=== PATIENT | female | born 1960 | race Caucasian/White ===

== ENCOUNTER → 2018-08-10 | Outpatient (CLI) | payer MEDICAID ==
--- NOTE | 2018-08-10 13:20 | RADIOLOGY REPORT (SQ) ---
EXAM DESCRIPTION: FOOT LEFT COMPLETE COMPLETED DATE/TIME: 08/10/2018 12:35 pm REASON FOR STUDY: LEFT FOOT PAIN twisted left foot on stairs 2 weeks ago, continued pain COMPARISON: None. NUMBER OF VIEWS: Three views. TECHNIQUE: AP, lateral and oblique radiographic images acquired of the left foot. LIMITATIONS: None. FINDINGS: MINERALIZATION: Normal. BONES: Patient is post surgery at the 1st MTP joint, with a left 1st metatarsal head prosthesis. Bon y remodeling of the base of the great toe proximal phalanx. No lucency around the hardware worrisome for loosening. Tiny subacute avulsion fracture along the dorsal aspect of the talus best shown on lateral view JOINTS: No effusions. SOFT TISSUES: Anterior left ankle soft tissue swelling, in the area of the distal tibialis anterior t endon. No foreign body. OTHER: No other significant finding. IMPRESSION: Tiny subacute avulsion fracture along the dorsal aspect of the talus, best shown on late ral view. There is adjacent anterior left ankle soft tissue swelling. Left 1st metatarsal head prosthesis with bony remodeling at the base great toe proximal phalanx. No lucency around the hardware worrisome for loosening TECHNICAL DOCUMENTATION: JOB ID: [id number] [employer]- All Rights Reserved Reading location - IP/workstation name: [email or web address]
== END ==
LOC: OD 12:20
PROVIDERS: ATTEND Nurse Practitioner Family
DX: M79.672 Pain in left foot (principal); S92.152D Displaced avulsion fracture (chip fracture) of left talus, subsequent encounter for fracture with routine healing; X58.XXXD Exposure to other specified factors, subsequent encounter

== ENCOUNTER 2018-08-23 14:17 | Emergency (ER) | payer MEDICAID ==
[2018-08-23] MEDS ORDERED: LIDOCAINE 1% INJ-PF (10 MG/ML) 30 ML SDV INJ ONE (15:18)
--- NOTE | 2018-08-23 17:42 | ER Document Report ---
ED Wound - General Chief Complaint: Laceration Stated Complaint: LACERATION TO LEFT WRIST Time Seen by Provider: 08/23/18 15:09 Mode of Arrival: Ambulatory Information source: Patient Notes: Patient is a 58-year-old female comes emergency room complaining of a laceration to her left wrist. Patient states she was washing a large glass it slipped in her hands she went to grab it and thought she was above the sink to pull it toward her body when she was actually at the middle of the sink shattering the glass and cutting her left wrist. The laceration is on the little finger side of the left wrist. TRAVEL OUTSIDE OF THE [place] IN LAST 30 DAYS: No - HPI Patient complains to provider of: Laceration Occurred: Just prior to arrival Onset/Duration: Sudden, Persistent, Better Quality of pain: Achy, Sharp Severity: Moderate Pain Level: 3 Context: Injury Skin Color: Normal Capillary refill: < 3 seconds Sensations intact: Yes Distal pulses present: Yes Associated Symptoms: Bleeding Past Medical History - General Information source: Patient - Social History Smoking Status: Never Smoker Cigarette use (# per day): No Chew tobacco use (# tins/day): No Smoking Education Provided: No Frequency of alcohol use: None Drug Abuse: None Family History: Reviewed & Not Pertinent Patient has suicidal ideation: No Patient has homicidal ideation: No - Past Medical History Cardiac Medical History: Reports: Hx Hypercholesterolemia, Hx Hypertension Endocrine Medical History: Reports: Hx Diabetes Mellitus Type 2 Renal/ Medical History: Denies: Hx Peritoneal Dialysis GI Medical History: Reports: Hx Gastroesophageal Reflux Disease Past Surgical History: Reports: Hx Kidney (Renal Surgery) - bladder stimulation implant - Immunizations Hx Diphtheria, Pertussis, Tetanus Vaccination: No Review of Systems - Review of Systems Constitutional: No symptoms reported EENT: No symptoms reported Cardiovascular: No symptoms reported Respiratory: No symptoms reported Gastrointestinal: No symptoms reported Genitourinary: No symptoms reported Female Genitourinary: No symptoms reported Musculoskeletal: No symptoms reported Skin: Other - Laceration Hematologic/Lymphatic: No symptoms reported Neurological/Psychological: No symptoms reported Physical Exam - Vital signs Vitals: Temp Pulse Resp BP Pulse Ox 98.0 F 100 20 137/58 H 98 08/23/18 14:34 08/23/18 14:34 08/23/18 14:34 08/23/18 14:34 08/23/18 14:34 - Notes Notes: Patient is a well-nourished well-developed 58-year-old female who does appear much older than her stated age. She is in no apparent distress upon initial evaluation - General General appearance: Appears well, Alert - HEENT Head: Normocephalic, Atraumatic Eyes: Normal - Respiratory Respiratory status: No respiratory distress Chest status: Nontender Breath sounds: Normal. No: Rales, Rhonchi, Stridor, Wheezing Chest palpation: Normal - Cardiovascular Rhythm: Regular Heart sounds: Normal auscultation Murmur: No - Extremities General upper extremity: Tender, Normal ROM, Normal strength, Normal temperature. No: Normal inspection, Nontender, Edema, Normal color General lower extremity: Normal inspection, Nontender, Normal ROM, Normal strength Shoulder: Normal Wrist: Tender, Laceration, Other - Further examination patient's left wrist shows that she has on the left side or the lateral side by the little finger wrist area a laceration that is in a Y shape. There is a flap and a left superficial tail off of the V. The entire length is approximately 2 cm when you failure in the flap of the be in the line.. No: Deformity, Dislocation, Ecchymosis, Instability, Limited ROM, Navicular tenderness Course - Re-evaluation Re-evalutation: 08/23/18 17:47 patient's stay in the emergency room was limited to the time she was here for the suturing. And she is states she can go by and see her primary care provider to have the sutures removed. I am placing patient on an antibiotic because it was cut in the sink there was a dirty food particles in other things. I have informed her to return to ER in 8-10 days for suture removal or to see her primary for the same. Also informed her to come back if she has any concerns that is not healing appropriately. - Vital Signs Vital signs: Temp Pulse Resp BP Pulse Ox 98.0 F 100 20 137/58 H 98 08/23/18 14:34 08/23/18 14:34 08/23/18 14:34 08/23/18 14:34 08/23/18 14:34 Procedures - Laceration/Wound Repair Left Wrist Time completed: 17:48 Wound length (cm): 2 Wound's Depth, Shape: Superficial, Into muscle, Flap, Stellate Laceration pre-procedure: Sterile PPE donned, Betadine prep applied, Sterile drapes applied, Shur-Clens applied Anesthetic type: 1% Lidocaine Volume Anesthetic (mLs): 5 Wound explored: No foreign body removed Irrigated w/ Saline (mLs): 200 Wound Debrided: Minimal Wound Repaired With: Sutures Suture Size/Type: 4:0, Prolene Number of Sutures: 6 Layer Closure?: No Post-procedure wound care: Sterile dressing applied Post-procedure NV exam normal: Yes Complications: No Discharge - Discharge Clinical Impression: Laceration Condition: Stable Disposition: HOME, SELF-CARE Instructions: Antibiotic Ointment Protection (OM), Laceration Care ([facility]) Additional Instructions: Home rest. Keep the wound clean and dry for 48 hours as much as possible. After that you may leave open to air during the day but covered at night. Change dressing twice a day and when wet or dirty. Return to ER in 8-10 days for suture removal or sooner if it does not appear to be healing accurately. You may also have your primary care provider with the sutures as well. But I would wait a minimum of 8 days and probably suggest 10 to make sure it is healed well. Take all the antibiotics. And I written you for Diflucan which is up a little help stop yeast infections while taking an antibiotic. Prescriptions: Fluconazole [Diflucan] 150 mg PO ONCE PRN #1 tablet PRN Reason: Sulfamethoxazole/Trimethoprim [Bactrim 400-80 mg Tablet] 1 each PO BID 5 Days # 10 tablet Referrals: VINAY ROBERTS FNP-C [Primary Care Provider] - Follow up as needed
[2018-08-23 18:12] VITALS: BP 117/65
== END 2018-08-23 17:57 | disposition home or self-care (01) ==
LOC: ER 14:17
PROC: 0HQEXZZ Repair Left Lower Arm Skin, External Approach (ICD-10-PCS; principal; 2018-08-23)
DX: S61.512A Laceration without foreign body of left wrist, initial encounter (principal); W25.XXXA Contact with sharp glass, initial encounter; I10 Essential (primary) hypertension; E11.9 Type 2 diabetes mellitus without complications
CPT/HCPCS: 99282

== ENCOUNTER → 2018-11-20 | Outpatient (CLI) | payer MEDICAID ==
--- NOTE | 2018-11-20 11:35 | RADIOLOGY REPORT (SQ) ---
EXAM DESCRIPTION: KUB COMPLETED DATE/TIME: 11/20/2018 10:28 am REASON FOR STUDY: RT UPPER QUADRANT ABDOMINAL PAIN R10.11 RIGHT UPPER QUADRANT PAIN COMPARISON: None. NUMBER OF VIEWS: One view. TECHNIQUE: Supine radiographic image of the abdomen acquired. LIMITATIONS: None. FINDINGS: BOWEL GAS PATTERN: Normal bowel gas pattern. No dilated loops. CALCIFICATIONS: 8 mm calcification in the right upper quadrant above the kidney. SOFT TISSUES: No gross mass or suggestion of organomegaly. HARDWARE: Neurostimulator. BONES: No acute fracture. No worrisome bone lesions. OTHER: No other significant finding. IMPRESSION: Cannot exclude gallstone. Study is otherwise unremarkable TECHNICAL DOCUMENTATION: JOB ID: [id number] [employer]- All Rights Reserved Reading location - IP/workstation name: [email or web address]
== END ==
LOC: OD 10:08
PROVIDERS: ATTEND Nurse Practitioner Family
DX: R10.11 Right upper quadrant pain (principal)
CPT/HCPCS: 74018

== ENCOUNTER 2019-01-23 15:45 | Emergency (ER) | payer MEDICAID ==
[2019-01-23] MEDS ORDERED: MECLIZINE HCL 25 MG TABLET PO ONE (16:37)
[2019-01-23] MEDS ORDERED: ONDANSETRON 4 MG TAB.RAPDIS PO ONE (16:37)
--- NOTE | 2019-01-23 16:39 | ER Document Report ---
ED Medical Screen (RME) - General Chief Complaint: Vertigo Stated Complaint: DIZZY Time Seen by Provider: 01/23/19 16:37 Primary Care Provider: VINAY ROBERTS FNP-C [Primary Care Provider] - Follow up as needed Mode of Arrival: Medic Information source: Patient TRAVEL OUTSIDE OF THE [place] IN LAST 30 DAYS: No - HPI Patient complains to provider of: vertigo; vomiting Onset: Yesterday - pt with h/o vertigo with onset yesterday with vomiting - Related Data Allergies/Adverse Reactions: acetaminophen [From Vicodin] Allergy (Verified 01/23/19 15:52) fexofenadine [From Deena] Allergy (Verified 01/23/19 15:52) hydrocodone [From Vicoprofen] Allergy (Verified 01/23/19 15:52) ibuprofen [From Vicoprofen] Allergy (Verified 01/23/19 15:52) iodine Allergy (Verified 01/23/19 15:52) Latex, Natural Rubber Allergy (Verified 01/23/19 15:52) Penicillins Allergy (Verified 01/23/19 15:52) Past Medical History - Social History Chew tobacco use (# tins/day): No Frequency of alcohol use: None Drug Abuse: None - Past Medical History Cardiac Medical History: Reports: Hx Hypercholesterolemia, Hx Hypertension Endocrine Medical History: Reports: Hx Diabetes Mellitus Type 2 Renal/ Medical History: Denies: Hx Peritoneal Dialysis GI Medical History: Reports: Hx Gastroesophageal Reflux Disease Past Surgical History: Reports: Hx Kidney (Renal Surgery) - bladder stimulation implant - Immunizations Hx Diphtheria, Pertussis, Tetanus Vaccination: No Physical Exam - Vital signs Vitals: Temp Pulse Resp BP Pulse Ox 97.5 F 115 H 16 173/73 H 97 01/23/19 15:56 01/23/19 15:56 01/23/19 15:56 01/23/19 15:56 01/23/19 15:56 Course - Vital Signs Vital signs: Temp Pulse Resp BP Pulse Ox 97.5 F 115 H 16 173/73 H 97 01/23/19 15:56 01/23/19 15:56 01/23/19 15:56 01/23/19 15:56 01/23/19 15:56 Doctor's Discharge - Discharge Referrals: VINAY ROBERTS FNP-C [Primary Care Provider] - Follow up as needed
[2019-01-23 18:02] LABS: ABSOLUTE BASOPHILS # (AUTO) 0.1 10^3/uL (0.0-0.2); ABSOLUTE EOSINOPHILS # (AUTO) 0.2 10^3/uL (0.0-0.6); ABSOLUTE LYMPHOCYTES (AUTO) 2.5 10^3/uL (0.5-4.7); ABSOLUTE MONOCYTES (AUTO) 0.5 10^3/uL (0.1-1.4); ABSOLUTE NEUT (AUTO) 4.5 10^3/uL (1.7-8.2); BASOPHILS % (AUTO) 1.3 % (0-2); EOSINOPHILS % (AUTO) 2.1 % (0-6); HEMATOCRIT 41.8 % (36.0-47.0); HEMOGLOBIN 14.4 g/dL (12.0-15.5); LYMPHOCYTES % (AUTO) 31.6 % (13-45); MEAN CORPUSCULAR HEMOGLOBIN 28.4 pg (27.0-33.4); MEAN CORPUSCULAR HGB CONC 34.5 g/dL (32.0-36.0); MEAN CORPUSCULAR VOLUME 82 fl (80-97); MONOCYTES % (AUTO) 6.8 % (3-13); PLATELET COUNT 258 10^3/uL (150-450); RED BLOOD COUNT 5.08 10^6/uL (3.72-5.28); RED CELL DISTRIBUTION WIDTH 14.3 % (11.5-14.0); SEGMENTED NEUTROPHILS % (AUTO) 58.2 % (42-78); TOTAL CELLS COUNTED % (AUTO) 100 %; WHITE BLOOD COUNT 7.8 10^3/uL (4.0-10.5)
[2019-01-23 18:07] LABS: APPEARANCE,URINE SLIGHTLY-CLOUDY; BILIRUBIN,URINE NEGATIVE (NEGATIVE); COLOR,URINE YELLOW; GLUCOSE, URINE 150 mg/dL (NEGATIVE); KETONES,URINE NEGATIVE (NEGATIVE); LEUKOCYTE ESTERASE,URINE TRACE (NEGATIVE); NITRITE,URINE NEGATIVE (NEGATIVE); PROTEIN,URINE NEGATIVE (NEGATIVE); URINE SPECIFIC GRAVITY 1.025; UROBILINOGEN,URINE NEGATIVE mg/dL (<2.0)
[2019-01-23 18:19] LABS: ALANINE AMINOTRANSFERASE 138 U/L (9-52); ALBUMIN 4.4 g/dL (3.5-5.0); ALKALINE PHOSPHATASE 120 U/L (38-126); ANION GAP 14 (5-19); ASPARTATE AMINO TRANSFERASE 76 U/L (14-36); BILIRUBIN,DIRECT 0.3 mg/dL (0.0-0.4); BILIRUBIN,TOTAL 0.5 mg/dL (0.2-1.3); BLOOD UREA NITROGEN 15 mg/dL (7-20); CALCIUM 10.4 mg/dL (8.4-10.2); CARBON DIOXIDE 26 mmol/L (22-30); CHLORIDE 97 mmol/L (98-107); GLUCOSE 169 mg/dL (75-110); POTASSIUM 3.9 mmol/L (3.6-5.0); SODIUM 136.9 mmol/L (137-145); TOTAL PROTEIN 7.9 g/dL (6.3-8.2)
[2019-01-23] MEDS ORDERED: DIAZEPAM 2 MG TABLET PO ONE (19:28)
[2019-01-23] MEDS ORDERED: METOCLOPRAMIDE HCL 10 MG TABLET PO ONE (19:29)
--- NOTE | 2019-01-23 19:34 | ER Document Report ---
ED General - General Chief Complaint: Vertigo Stated Complaint: DIZZY Time Seen by Provider: 01/23/19 16:37 Primary Care Provider: VINAY ROBERTS FNP-C [Primary Care Provider] - Follow up as needed Mode of Arrival: Medic Notes: Patient is a 58-year-old female with past medical history of diabetes, hypertension, intermittent vertigo, presents complaining of 3 days of vertigo. Patient reports that these are episodes of room spinning with associated nausea and vomiting. States that movement of her head or eyes seems to trigger the symptoms. States this feels identical to episodes of vertigo that she has had in the past that typically respond to Zofran and meclizine. She does not have these medicines available at home and came to the emergency department for treatment. She has not seen her primary doctor regarding today's concerns. She denies any focal weakness, numbness, confusion, neck pain, or difficulty walking. No falls. No head trauma. States that she feels somewhat better since receiving meclizine in triage. TRAVEL OUTSIDE OF THE [place] IN LAST 30 DAYS: No - Related Data Allergies/Adverse Reactions: acetaminophen [From Vicodin] Allergy (Verified 01/23/19 15:52) fexofenadine [From Deena] Allergy (Verified 01/23/19 15:52) hydrocodone [From Vicoprofen] Allergy (Verified 01/23/19 15:52) ibuprofen [From Vicoprofen] Allergy (Verified 01/23/19 15:52) iodine Allergy (Verified 01/23/19 15:52) Latex, Natural Rubber Allergy (Verified 01/23/19 15:52) Penicillins Allergy (Verified 01/23/19 15:52) Past Medical History - General Information source: Patient - Social History Smoking Status: Never Smoker Chew tobacco use (# tins/day): No Frequency of alcohol use: None Drug Abuse: None Lives with: Friend Family History: Reviewed & Not Pertinent Patient has suicidal ideation: No Patient has homicidal ideation: No - Past Medical History Cardiac Medical History: Reports: Hx Hypercholesterolemia, Hx Hypertension Endocrine Medical History: Reports: Hx Diabetes Mellitus Type 2 Renal/ Medical History: Denies: Hx Peritoneal Dialysis GI Medical History: Reports: Hx Gastroesophageal Reflux Disease Past Surgical History: Reports: Hx Kidney (Renal Surgery) - bladder stimulation implant - Immunizations Hx Diphtheria, Pertussis, Tetanus Vaccination: No Review of Systems - Review of Systems Notes: Constitutional: Negative for fever. HENT: Negative for sore throat. Eyes: Negative for visual changes. Cardiovascular: Negative for chest pain. Respiratory: Negative for shortness of breath. Gastrointestinal: Negative for abdominal pain, positive for nausea and vomiting Genitourinary: Negative for dysuria. Musculoskeletal: Negative for back pain. Skin: Negative for rash. Neurological: Positive for dizziness 10 point ROS negative except as marked above and in HPI. Physical Exam - Vital signs Vitals: Temp Pulse Resp BP Pulse Ox 97.5 F 115 H 16 173/73 H 97 01/23/19 15:56 01/23/19 15:56 01/23/19 15:56 01/23/19 15:56 01/23/19 15:56 Interpretation: Hypertensive - Tachycardia resolved at the time of my assessment, Tachycardic Notes: PHYSICAL EXAMINATION: GENERAL: Well-appearing, well-nourished and in no acute distress. HEAD: Atraumatic, normocephalic. EYES: Pupils equal round and reactive to light, extraocular movements intact, sclera anicteric, conjunctiva are normal. ENT: nares patent, oropharynx clear without exudates. Moderately dry mucous membranes. NECK: Normal range of motion, supple without lymphadenopathy LUNGS: Breath sounds clear to auscultation bilaterally and equal. No wheezes rales or rhonchi. HEART: Regular rate and rhythm without murmurs ABDOMEN: Soft, nontender, normoactive bowel sounds. No guarding, no rebound. No masses appreciated. EXTREMITIES: Normal range of motion, no pitting or edema. No cyanosis. NEUROLOGICAL: Face symmetric. Tongue protrudes midline. Extraocular motions intact. Pupils are 2 mm and equally reactive. Normal speech, normal gait. 5 out of 5 strength in both the distal and proximal upper and lower extremities bilaterally. Sensation is grossly intact throughout. Finger to nose testing normal. Pronator drift normal. PSYCH: Anxious SKIN: Warm, Dry, normal turgor, no rashes or lesions noted. Course - Re-evaluation Re-evalutation: 01/23/19 19:30 Presentation of vertigo that appears most consistent with a benign peripheral vertigo. Patient has no abnormal findings on exam. Normal cerebellar testing, steady even gait. Able to walk on heels and toes. Normal proprioception. Patient is not an elevated risk for a cerebellar infarction given age, absence of significant risk factors. Patient did have improvement of symptoms here in the emergency department with meclizine. Has had this recurrently in the past, very low clinical suspicion for cerebral infarction. Suspect likely acute vestibular neuritis. I do not believe neurologic imaging is indicated at this time based on physical examination and clinical history. At this time will discharge with return precautions and follow-up recommendations. Verbal discharge instructions given a the bedside and opportunity for questions given. Medication warnings reviewed. Patient is in agreement with this plan and has verbalized understanding of return precautions and the need for primary care follow-up in the next 24-72 hours. - Vital Signs Vital signs: Temp Pulse Resp BP Pulse Ox 97.5 F 115 H 16 173/73 H 97 01/23/19 15:56 01/23/19 15:56 01/23/19 15:56 01/23/19 15:56 01/23/19 15:56 - Laboratory Result Diagrams: 01/23/19 17:42 01/23/19 17:42 Laboratory results interpreted by me: 01/23/19 01/23/19 01/23/19 17:42 17:42 17:42 RDW 14.3 H Sodium 136.9 L Chloride 97 L Creatinine 0.39 L Glucose 169 H Calcium 10.4 H AST 76 H ALT 138 H Urine Glucose (UA) 150 H Ur Leukocyte Esterase TRACE H Discharge - Discharge Clinical Impression: Vertigo Nausea and vomiting Qualifiers: Vomiting type: unspecified Vomiting Intractability: non-intractable Qualified Code(s): R11.2 - Nausea with vomiting, unspecified Condition: Good Disposition: HOME, SELF-CARE Additional Instructions: You were seen today for lightheadedness/dizziness. The exact cause of your symptoms is unclear but your workup here is reassuring without any concerning findings. Please follow closely with your primary care physician in the next 1- 3 days. Return if you pass out, have additional episodes of lightheadedness, develop weakness/numbness, have persistent vomiting, chest pain, shortness of breath or any other symptoms that are concerning to you Prescriptions: Meclizine HCl [Antivert 25 mg Tablet] 25 mg PO TID PRN #21 tablet PRN Reason: Ondansetron [Zofran Odt 4 mg Tablet] 1 - 2 tab PO Q4H PRN #15 tab.rapdis PRN Reason: For Nausea/Vomiting Referrals: VINAY ROBERTS RIVET STICKER-C [Primary Care Provider] - Follow up in 3-5 days
[2019-01-23 19:40] VITALS: BP 134/66
== END 2019-01-23 20:05 | disposition home or self-care (01) ==
LOC: ER 15:45
DX: R42 Dizziness and giddiness (principal); R11.2 Nausea with vomiting, unspecified; I10 Essential (primary) hypertension; E11.9 Type 2 diabetes mellitus without complications; Z88.6 Allergy status to analgesic agent; Z91.040 Latex allergy status; Z88.0 Allergy status to penicillin
CPT/HCPCS: 99283; 36415; 85025; 80053; 81001; S0119; J3490

== ENCOUNTER → 2019-02-17 | Outpatient (CLI) | payer MEDICAID ==
[~2019-02-17] MED LIST: REGADENOSON INJ 0.4 MG/5 ML DISP.SYRIN IV ONE
--- NOTE | 2019-02-18 21:50 | DRAGON STRESS TEST REPORT ---
Intravenous Lexiscan Cardiolite stress test using single photon emmision computerized tomography. Date of procedure: 02/17/2019. Ordering Provider: Dr. José Miguel Ventura. Patient's status: Out Patient. Indication: Chest pain. Coronary risk factors: Age, diabetes mellitus, hypertension, dyslipidemia, and premature coronary artery disease history in the family. Resting EKG: Sinus Rhythm.. Within Normal Limits. Stress EKG: No changes of ischemia. The patient had no chest pain or discomfort, and there were no arrhythmias seen. Reason for termination: Protocol. Conclusions: Normal EKG and hemodynamic response to IV Lexiscan. Nuclear data: At rest the patient was given 12.31 millicuries of technetium 99m sestamibi injected intravenously. As per protocol rest non gated SPECT images were obtained. Subsequently the patient was given intravenous Lexiscan at a dose of 0.4 mg in 5 mL intravenously, followed by flush with normal saline. Subsequently the stress dose of 39.0 millicuries of technetium 99m sestamibi was injected intravenously. As per protocol stress gated images were obtained. Nuclear interpretation: Review of images showed that all segments of the myocardium had normal perfusion at rest, and normal perfusion post stress with IV Lexiscan. All segments of the myocardium had normal motion, contraction, and thickening by gated study. T. I D. ratio was normal at 1.02. Computer read rest, and stress left ventricular ejection fraction were 71 %, and 66 %, respectively. Conclusion: 1. There is no scintigraphic evidence of Lexiscan induced myocardial ischemia. 2. There is no scintigraphic evidence of myocardial infarction/scar. Recommendations: Aggressive risk factor modification, and treating the underlying co- morbidities. MTDD
--- NOTE | 2019-02-18 23:36 | XCELERA REPORT ---
[address] [address] Transthoracic Echocardiogram Report Name: CHETAN BROOKS Age: 58 yrs Gender: Female : 1960 Patient Status: Preadmit Patient Location: RAD Study Date: 02/17/2019 11:28 AM Height: 66 in Weight: 189 lb BSA: 2.0 m2 Procedure: A two-dimensional transthoracic echocardiogram with color flow and Doppler was performed. The study was technically difficult with many images being suboptimal in quality. Study Quality: Technically suboptimal. Reason For Study: MURMUR History: MURMUR. Ordering Physician: MITALI THURSTON Performed By: Radha Brady Interpretation Summary The left ventricle is normal in size. There is normal left ventricular wall thickness. The left ventricular ejection fraction is within normal limits. LV EF is Greaterthan 65% Doppler measurements suggest impaired left ventricular relaxation, which is associated with grade I/IV or mild diastolic dysfunction The left ventricular wall motion is normal. There is no thrombus. Cannot assess ASD,VSD , or PFO. The right ventricle is not well visualized secondary to technical limitations The right ventricle is grossly normal size. The right atrium is normal. The left atrial size is normal. There is no evidence of mitral valve prolapse. There is no vegetation seen on the mitral valve. There is no mitral valve stenosis. There is a trace amount of mitral regurgitation There is no aortic valvular vegetation. There is no aortic valve stenosis There is no LVOT obstruction. No aortic regurgitation is present. There is no tricuspid stenosis. There is a mild amount of tricuspid regurgitation There is moderate pulmonary hypertension by echo RVSP is 48 t0 53 mm of Hg , with RA mean of 5 to 10. There is no pulmonic valvular stenosis. There is no pulmonic valvular regurgitation. The aortic root is normal size. The inferior vena cava appeared normal and decreased > 50% with respiration (RAP 5-10 mmHg) There is no pericardial effusion. MMode/2D Measurements & Calculations RVDd: 3.0 cm LVIDd: 4.5 cm FS: 38.3 % Ao root diam: 2.9 cm IVSd: 0.87 cm LVIDs: 2.8 cm EDV(Teich): 92.4 ml Ao root area: 6.4 cm2 LVPWd: 0.92 cm ESV(Teich): 28.9 ml LA dimension: 3.2 cm EF(Teich): 68.7 % Doppler Measurements & Calculations MV E max carole: MV P1/2t max carole: Ao V2 max: LV V1 max P.9 cm/sec 95.4 cm/sec 143.3 cm/sec 5.8 mmHg MV A max carole: MV P1/2t: 54.8 msec Ao max P.2 mmHgLV V1 max: 129.4 cm/sec MVA(P1/2t): 4.0 cm2 120.1 cm/sec MV E/A: 0.73 MV dec slope: 510.2 cm/sec2 MV dec time: 0.18 sec PA V2 max: TR max carole: MV P1/2t-pr_phl: 140.4 cm/sec 325.8 cm/sec 54.8 msec PA max P.9 mmHgTR max P.5 mmHg Left Ventricle The left ventricle is normal in size. There is normal left ventricular wall thickness. The left ventricular ejection fraction is within normal limits. LV EF is Greaterthan 65%. Doppler measurements suggest impaired left ventricular relaxation, which is associated with grade I/IV or mild diastolic dysfunction. The left ventricular wall motion is normal. There is no thrombus. Cannot assess ASD,VSD , or PFO. Right Ventricle The right ventricle is not well visualized secondary to technical limitations. The right ventricle is grossly normal size. Atria The right atrium is normal. The left atrial size is normal. Mitral Valve There is no evidence of mitral valve prolapse. There is no vegetation seen on the mitral valve. There is no mitral valve stenosis. There is a trace amount of mitral regurgitation. Aortic Valve There is no aortic valvular vegetation. There is no aortic valve stenosis. There is no LVOT obstruction. No aortic regurgitation is present. Tricuspid Valve There is no tricuspid stenosis. There is a mild amount of tricuspid regurgitation. There is moderate pulmonary hypertension by echo. RVSP is 48 t0 53 mm of Hg , with RA mean of 5 to 10. Pulmonic Valve There is no pulmonic valvular stenosis. There is no pulmonic valvular regurgitation. Great Vessels The aortic root is normal size. The inferior vena cava appeared normal and decreased > 50% with respiration (RAP 5-10 mmHg). Effusions There is no pericardial effusion. : MITALI THURSTON > Juany Mendoza
== END ==
LOC: RAD 07:53
PROVIDERS: ATTEND Internal Medicine Cardiovascular Disease
DX: R07.9 Chest pain, unspecified (principal); R01.1 Cardiac murmur, unspecified
CPT/HCPCS: 93306; 93017; 78452; A9500; J2785; Q9969